=== PATIENT | male | born 1940 | race Caucasian/White ===

== ENCOUNTER 2016-10-31 23:46 | Inpatient (IN) ==
--- NOTE | 2016-11-01 01:12 | Emergency Department Note ---
Elvia Bermudez Hilary, am scribing for, and in the presence of, Shaheed Rasmussen MD 01:09. Grady Bermudez Charles R, MD, personally performed the services described in this documentation, ascribed by Sol Gan in my presence, and it is both accurate and complete . Arrival - Arrival Chief Complaint: Dizziness ED Nursing Triage Note: C/O Near syncopal episodes/dizziness/bradycardia. Onset on and off for the past couple of weeks. Pt reports that he has seen Dr. Graff for these symptoms and pt had heart monitor placed recently; states he hasn't received the results of the test. Pt reports that yesterday he had dizziness and near syncopal episodes more often. Pt is in bigeminy at time of triage. Mode of Arrival: Stretcher Limitations: No Limitations Source: Patient, RN Notes Reviewed Time Seen by Provider: 11/01/16 00:51 - History of Present Illness HPI Narrative: Pt is a 76 y/o white male brought to the ED via EMS for c/o near syncopal episodes, dizziness, and bradycardia which has been intermittent for several weeks. Pt reports that he was sent from [facility] to be monitored and checked. Pt reports that yesterday he was dizzy and almost passed out multiple times and per pt his HR was 32. No other complaints or problems stated in the ED. Onset (ago): week(s) Consistency: intermittent Severity: moderate Severity scale (1-10): 3 Allergies/Adverse Reactions: Allergies Allergy/AdvReac Type Severity Reaction Status Date / Time levofloxacin [From Levaquin] AdvReac Mild ITCHING Verified 02/02/15 17:35 Home Medications: Home Medications Medication Instructions Recorded Confirmed Type Aspirin 325 mg PO DAILY 11/01/16 11/01/16 History Atorvastatin [Lipitor] 10 mg PO BEDTIME 11/01/16 11/01/16 History Glucosamine 1,500 mg PO DAILY 11/01/16 11/01/16 History Hydrocodone/Acetaminophen 1 each PO Q6HR PRN 11/01/16 11/01/16 History [Hydrocodon-Acetaminophn 10-325] LORazepam [Lorazepam] 1 - 2 mg PO BEDTIME 11/01/16 11/01/16 History Lisinopril 10 mg PO DAILY 11/01/16 11/01/16 History Metoprolol Tartrate 12.5 mg PO BID 11/01/16 11/01/16 History Tamsulosin [Flomax] 0.4 mg PO BEDTIME 11/01/16 11/01/16 History Review of System - Review of System 12 point system: reviewed and no additional remarkable complaints except as stated - Review of System Constitutional: Present: other (dizziness). Absent: fever Cardiovascular: Present: other (low heart rate). Absent: syncope (near syncope multiple times) Neurological: Present: other (dizziness) Medical,Surgical,& Family Hx - Medical History Cardio: History of: Valvular Heart Disease (Hx: Heart valve replacement) No history of: Cardiac Dysrhythmia, CAD, Hypertension Psychological: History of: Anxiety Disorders Neurology: History of: Seizures HEENT: History of: HEENT Problems ([place]) Respiratory: History of: Respiratory Problems (SOB ON EXERTION) Renal: History of: Renal Problems (FREQUENCY) Genitourinary: History of: Prostate Problems (Enlarged prostate) Gastrointestinal: History of: GERD, Hemorrhoids, Polyps, GI Problems (Dysphagia) Musculoskeletal: History of: Back/Neck Problems, Herniated Disk, Musculoskeletal Problems (arthritis) No history of: Amputation Other: History of: MRSA (SPINE) - Surgical History Cardiac Surgeries: Sugical HX of: Cardiac Catheterization, Cardiac Surgery ( Heart valve replacement) Thoracic Surgeries: Patient denies;: Organ Transplant, Lobectomy Neurologic Surgeries: Patient denies: Neurologic Surgery HEENT Surgeries: Surgical HX of: Eye Surgery (RIGHT EYE CATARACT SURG.) Patient denies: Thyroid Surgery, Tonsilectomy & Adenoidectomy Abdominal Surgeries: Surgical HX of: Colonoscopy, EGD Patient denies: Abdominal Surgery Reproductive Surgeries: Patient denies;: Genitourinary Surgery, Prostate Surgery Orthopedic Surgeries: Surgical HX of;: Orthopedic Surgery, Spinal Surgery ( INJECTION L5/S1 LUMBAR FUSION ROTATOR CUFF) - Family History Family History: Reports;: Family Cancer (MOTHER-PANCREATIC FATHER-LUNG BROTHER- LUNG), Family Diabetes (BROTHER), Family Heart Disease (SISTER,), Family Hypertension (Brother), Family Stroke (FATHER) Denies;: Family Anesthesia Reaction, Family Psychiatric Problems - Social History Smoking Status: Never smoker Frequency of Alcohol Use: None Type of Drug Use: None Exam Vital Signs: Vital Signs Temperature 98.4 F 10/31/16 23:46 Pulse Rate 74 06/15/17 23:46 Respiratory Rate 18 10/31/16 23:46 Blood Pressure 170/103 10/31/16 23:46 O2 Sat by Pulse Oximetry 98 10/31/16 23:46 - General General appearance: alert, in no apparent distress - Head Head exam: Present: atraumatic, normocephalic - Eye Eye exam: Present: normal appearance, PERRL, EOMI - ENT ENT exam: Present: mucous membranes moist, TM's normal bilaterally. Absent: mucous membranes dry - Neck Neck exam: Present: full ROM, trachea midline. Absent: tenderness - Chest Chest inspection: Present: symmetric chest wall rise. Absent: tenderness - Respiratory Respiratory exam: Present: rhonchi (in all lung amanda) - Cardiovascular Cardiovascular exam: Present: bradycardia, irregular rhythm, normal heart sounds , murmur (5/6 systolic ejection murmur) - Abdominal Exam Abdominal exam: Present: soft, normal bowel sounds. Absent: distention, tenderness - Extremities Exam Extremities exam: Present: full ROM. Absent: tenderness - Back Exam Back exam: Present: full ROM. Absent: tenderness - Neurological Exam Neurological exam: Present: alert, oriented X3, CN II-XII intact. Absent: motor sensory deficit - Psychiatric Psychiatric exam: Present: normal affect, normal mood - Skin Skin exam: Present: warm, dry, intact, normal color. Absent: rash Course - Consultations Consultation #1: Dr. Romero will admit patient Time: 01:10 Results - Labs Lab Results: I have reviewed the patients labs Labs: All results reviewed from previous facility Disposition Clinical Impression: Abnormal finding on EKG, Bradycardia, Bigeminy, Sick sinus syndrome Case discussed with: patient, patient's family Disposition: Still a Patient Condition: Stable Time of Disposition: 01:11
[2016-11-01] MEDS ORDERED: POTASSIUM CHLORIDE 20 MEQ TABLET PO PRN (02:43)
[2016-11-01] MEDS ORDERED: MAGNESIUM SULF RIDER 2 GM in PREMIX 1 EACH IV PRN (02:43)
[2016-11-01] MEDS ORDERED: MORPHINE 2 MG/1 ML SYRINGE IV PRN (02:43)
[2016-11-01] MEDS ORDERED: MAGNESIUM SULF RIDER 4 GM in PREMIX 1 EACH IV PRN (02:43)
[2016-11-01] MEDS ORDERED: ONDANSETRON 4 MG/2 ML VIAL IV PRN (02:43)
[2016-11-01] MEDS ORDERED: PNEUMOCOCCAL VACCINE (13 VALENT) 0.5 ML SYRINGE IM ONE (03:17)
[2016-11-01 04:05] LABS: Basophils % 0.5 % (0.0-0.8); Eosinophils # 0.3 10*3/uL (0.0-0.87); Eosinophils % 3.9 % (0.00-10.9); Hematocrit 32.3 VOL% (42.0-52.0); Hemoglobin 10.3 GM/DL (14.0-18.0); Immature Granulocytes % 0.4 %; Immature Granulocytes Absolute 0.03 #; Lymphocytes # 2.2 10*3/uL (1.4-4.0); Lymphocytes % 29.8 % (21.2-54.2); Mean Corpuscular HGB Conc 31.9 GM/DL (32-36); Mean Corpuscular Hemoglobin 29 PG (27-34); Mean Corpuscular Volume 90.5 FL (87-102); Mean Platelet Volume 12.6 FL (9.6-12.0); Monocytes # 0.6 10*3/uL (0.11-0.8); Monocytes % 8.4 % (1.7-12.7); Neutrophils # 4.3 10*3/uL (1.4-7.4); Platelet Count 171 T/CUMM (130-400); Red Blood Count 3.57 MC/CUMM (3.8-5.5); Red Cell Distribution Width 14.8 % (9.3-17.3); White Blood Count 7.5 T/CUMM (4-12)
[2016-11-01 04:37] LABS: Troponin I Only < 0.015 NG/ML (0.00-0.045)
[2016-11-01 04:38] LABS: Albumin 3.5 G/DL (3.4-5.0); Bilirubin,Total 0.7 MG/DL (0.2-1.0); Calcium 8.4 MG/DL (8.5-10.1); Magnesium 2.3 MG/DL (1.8-2.4); Potassium 4.2 MMOL/L (3.5-5.1); Risk Ratio 2.55; Thyroid Stimulating Hormone 4.46 uIU/ml (0.358-3.74); Total Protein 6.4 G/DL (6.4-8.3); VLDL CHOLESTEROL 12.4 MG/DL
--- NOTE | 2016-11-01 07:10 | EKG Report ---
Stationary ECG Study [facility] Test Date: 10/31/2016 11:56:50 PM Pat Name: ISIDRO MCDONOUGH Department: Room: 275 Gender: M Primary Operator: JUAN : 1940 Requested by: Shaheed An Order Number: [id number] Reading MD: MALIK MOFFETT Intervals [place] Rate: 70 P: 66 [place]: 207 QRS: 86 QRSD: 109 T: -21 QT: 371 QTc: 392 Interpretive Statements SINUS RHYTHM WITH FREQUENT VENTRICULAR PREMATURE COMPLEXES IN A BIGEMINAL PATTERN Electronically Signed On 11-02-16 15:04:35 CDT by MALIK MOFFETT [id number]
--- NOTE | 2016-11-01 07:15 | XRay Report ---
Portable chest Date: 11/01/2016 Clinical history: Shortness of breath Comparison: 02/20/2015 Technique: Portable AP sitting chest Findings: The heart is normal in size. Status post median sternotomy with chronic scarring. The lungs are minimally over expanded with minimal atelectasis at the right lung base. Possible pleural thickening laterally in the right lower lung zone. Postoperative findings in the left shoulder with degenerative changes. Impression: Status post median sternotomy with chronic scarring. The lungs are over expanded with atelectasis at the right lung base. Possible pleural thickening laterally in the right hemithorax. Follow-up PA and lateral chest x-ray is recommended. PROCEDURE INTERPRETED AT [facility] DEPARTMENT OF RADIOLOGY Final Report Signed by: Dr. Catrachita Arenas
[2016-11-01] MEDS ORDERED: ENOXAPARIN 40 MG/0.4 ML SYRINGE SUBCUT SCH (09:00)
[2016-11-01] MEDS ORDERED: ASPIRIN 325 MG TABLET PO SCH (09:00)
[2016-11-01] MEDS: GLUCOSAMINE 500 MG TABLET PO SCH (09:21)
[2016-11-01] MEDS: PANTOPRAZOLE 40 MG TABLET PO SCH (09:22)
[2016-11-01] MEDS: LISINOPRIL 10 MG TABLET PO SCH (09:22)
--- NOTE | 2016-11-01 10:36 | EKG Report ---
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
[2016-11-01 11:28] LABS: Troponin I Only < 0.015 NG/ML (0.00-0.045)
--- NOTE | 2016-11-01 11:59 | Cardiology History & Physical ---
Dena Bermudez April RN, am scribing for, and in the presence of, Gallo Doshi MD 11:56. Assessment and Plan - Time spent with patient Time spent with patient: Greater than 30 minutes (Due to assessment, planning, documentation, medication review) (1) Bigeminy Status: Acute Assessment and plan: 1. 76-year-old overweight WM with hypertension, dyslipidemia, status post aVR ( for severe left ear), and two-vessel CABG (FISCHER and diagonal) January 2015, with long history of frequent PVCs, which now appears to be symptomatic with associated fatigue, shortness of breath, and dizziness (one episode of presyncope) 2. Recent Holter monitor showed low heart rate of 45; he reported a heart rate in the upper 30s at outside ER, but likely due to his ventricular bigeminy that he has frequently. 3. Chads 2 vascular score is 2, will start Eliquis 5 mg twice daily 4. Normal LV function by recent echocardiogram in clinic (Dr. Graff) 5. Discontinue his metoprolol (recently decreased to 12.5 g twice daily), and try amiodarone 0.5 mg/min with 200 g p.o. twice daily to try to suppress his symptomatic PVCs. 6. Brief episodes of atrial fibrillation noted on recent Holter monitor, as well as brief SVT of less than 10 beats 7. Highly suspect NOE given his daytime somnolence, episodes of witnessed apnea by his and dysrhythmia. Consult sleep medicine. Current Visit: Yes (2) CAD (coronary artery disease) Status: Chronic Current Visit: Yes Qualifiers: Coronary Disease-Associated Artery/Lesion type: bypass graft [place] vs. transplanted heart: hughes heart Associated angina: without angina Qualified Code(s): I25.810 - Atherosclerosis of coronary artery bypass graft(s) without angina pectoris (3) Status post aortic valve replacement Status: Chronic Current Visit: Yes (4) Hypertension Status: Chronic Current Visit: Yes (5) Dyslipidemia Status: Chronic Current Visit: Yes (6) Bradycardia Status: Acute Current Visit: Yes History of Present Illness Chief complaint: Dizziness, low heart rates History of present illness: [employer] Supervisor: Dr. Graff Mr. Yee is a 76 year old male who is routinely followed by Dr. Graff with a history of CAD, aortic valve replacement, hypertension, dyslipidemia, and arthritis. He had aortic valve replacement with a 21 mm pericardial prosthesis February 15, [address] Mares. At this time he also had an internal mammary graft placed to the anterior descending coronary artery and a saphenous vein graft to diagonal coronary artery. Surgical history includes cervical spine, lumbosacral spine, bilateral rotator cuff, and left foot. Family history is positive for parents and brother with cancer, brother with hypertension diabetes , and sister with heart valve replacement. He does not currently smoke, reports he quit smoking about 30 years ago. He states he is very active. He saw Dr. Graff 10/17/2016 for a follow-up. Echo done showed ejection fraction of 55% with prosthetic aortic valve noted in normal function and position. He complained of palpitations and had a 48 Hour Holter placed. The heart rate ranged from 45-128 bpm with runs of SVT, the longest being 10 beats. He was also noted to have some brief runs of atrial fibrillation as well. He says he had none of his symptoms while wearing the Holter. He reports he feels as though his heart has been skipping beats for about 3 months. 4-5 days ago his heart rate came to feel slower and yesterday when he checked it with his blood pressure machine at home, it showed heart rates in the 30s. He presented to the emergency department in [place] for further evaluation. The emergency department at [facility] did document at one place that his heart rate was 37, but there were no rhythm strips and over and negative EKGs support this. The EKGs done there showed sinus bradycardia with heart rate of 55 and sinus rhythm with PVCs in a bigeminal pattern with heart rate of 75 and 71. EKG done in our facility showed sinus rhythm with frequent PVCs in a bigeminal pattern, heart rate 70. Reviewing the ekg monitor tech strips throughout the night, I do not see any record of heart rates in the 30s. Most of the night his heart rates were in the 60s and he was having frequent PVCs. He reports when he feels like his heart rate is low, he feels dizzy and weak as if he might pass out. He has had no loss of consciousness. He reports when laying down his heart feels like it beats very hard and he can feel it in his ears. He denies any shortness of breath except when laying down, but he states he only sleeps on one pillow. His does report that he snores and seems to stop breathing erratically while sleeping. He states he has never been tested for sleep apnea. He denies any chest pain with these symptoms or otherwise. He also tells me he has been having a dry cough that coincided with starting lisinopril. He reports during the night his heart began to feel like it was beating normally. Currently ekg monitor tech shows sinus rhythm heart rates in the 90s. He is sitting up eating breakfast and denies any chest pain or shortness of breath at this time. Troponin has been negative 1 check. His TSH is elevated at 4.470 with a free T4 of 0.96. BNP is 2220. All other lab was unremarkable. Chest x-ray showing atelectasis at the right lung base with possible pleural thickening laterally in the right hemithorax. His blood pressure elevated on admission at 170/103, little better this morning at 140/66. Home Medications Medication Instructions Recorded Confirmed Type Aspirin 325 mg PO DAILY 11/01/16 11/01/16 History Atorvastatin [Lipitor] 10 mg PO BEDTIME 11/01/16 11/01/16 History Ginkgo Biloba 120 mg PO DAILY 11/01/16 11/01/16 History Glucosamine 1,500 mg PO DAILY 11/01/16 11/01/16 History Hydrocodone/Acetaminophen 1 each PO Q6HR PRN 11/01/16 11/01/16 History [Hydrocodon-Acetaminophn 10-325] LORazepam [Lorazepam] 1 - 2 mg PO BEDTIME 11/01/16 11/01/16 History Lisinopril 10 mg PO DAILY 11/01/16 11/01/16 History Metoprolol Tartrate 12.5 mg PO BID 11/01/16 11/01/16 History Tamsulosin [Flomax] 0.4 mg PO BEDTIME 11/01/16 11/01/16 History Ubidecarenone [Co Q-10] 1 tablet PO DAILY 11/01/16 11/01/16 History Allergies Allergy/AdvReac Type Severity Reaction Status Date / Time levofloxacin [From Levaquin] AdvReac Mild ITCHING Verified 02/02/15 17:35 - Constitutional Constitutional: Present: as per HPI - EENT Eyes: Present: blurry vision. Absent: requires corrective lense Ears: Present: decreased hearing, tinnitus Nose, mouth and throat: Present: neck pain. Absent: epistaxis, headache(s), hoarseness, sore throat - Cardiovascular Cardiovascular: Present: lightheadedness, orthopnea, palpitations. Absent: chest pain at rest, chest pain with activity, diaphoresis, dyspnea, dyspnea on exertion, edema, radiating jaw, neck or arm pain - Respiratory Respiratory: Present: cough. Absent: dyspnea, hemoptysis, dyspnea on exertion, wheezing - Gastrointestinal Gastrointestinal: Absent: abdominal pain, constipation, diarrhea, hematemesis, hematochezia, melena, nausea, vomiting - Genitourinary Genitourinary: Absent: dysuria, nocturia - Musculoskeletal Musculoskeletal: Present: back pain, limited range of motion, muscle weakness - Neurological Neurological: Present: dizziness, other (Near-syncope). Absent: abnormal gait, abnormal speech, confusion, frequent falls, headache(s), syncope - Psychiatric Psychiatric: Absent: confusion, depression - Endocrine Endocrine: Present: fatigue - Hematologic/Lymphatic Hematologic/Lymphatic: Present: easy bruising. Absent: easy bleeding Medical,Surgical,& Family Hx - Medical History Cardio: History of: CAD, Hypertension, Valvular Heart Disease (Hx: Heart valve replacement) Psychological: History of: Anxiety Disorders HEENT: History of: HEENT Problems ([place]) Renal: History of: Renal Problems (F[place]) Genitourinary: History of: Prostate Problems (Enlarged prostate) Gastrointestinal: History of: GERD, Hemorrhoids, Polyps, GI Problems (Dysphagia) Musculoskeletal: History of: Back/Neck Problems, Herniated Disk, Musculoskeletal Problems (arthritis) Other: History of: MRSA (SPINE) - Surgical History Cardiac Surgeries: Sugical HX of: Cardiac Catheterization, Cardiac Surgery ( Heart valve replacement and bypass) HEENT Surgeries: Surgical HX of: Eye Surgery (RIGHT EYE CATARACT SURG.) Abdominal Surgeries: Surgical HX of: Colonoscopy, EGD Reproductive Surgeries: Patient denies;: Prostate Surgery Orthopedic Surgeries: Surgical HX of;: Orthopedic Surgery, Spinal Surgery ( INJECTION L5/S1 LUMBAR FUSION ROTATOR CUFF) - Family History Family History: Reports;: Family Cancer (MOTHER-PANCREATIC FATHER-LUNG BROTHER- LUNG), Family Diabetes (BROTHER), Family Heart Disease (SISTER,), Family Hypertension (Brother), Family Stroke (FATHER) - Social History Smoking Status: Former smoker (Reports he quit smoking about 30 years ago) Have you smoked in the last 12 months: No Frequency of Alcohol Use: None Type of Drug Use: None Marital Status: Lives With:: Spouse Functional capacity: independent ambulation Cardiology Physical Exam - Constitutional Vitals: Vital Signs Temp Pulse Resp BP Pulse Ox 98.7 F 65 16 140/66 98 11/01/16 07:36 11/01/16 07:36 11/01/16 07:36 11/01/16 07:36 11/01/16 07:36 Intake and Output 10/31/16 11/01/16 11/01/16 22:59 06:59 14:59 Intake Total 0 / 0 Balance 0 / 0 Intake: Oral 0 / 0 Other: Voiding Method Toilet # Voids 1 Weight 210 lb General appearance: no acute distress, over weight - Head Head exam: Absent: abrasion, contusion, hematoma - Eye Eye exam: Absent: periorbital swelling, laceration to eyelids Pupils: Absent: dilated, fixed - Respiratory Respiratory exam: Present: clear to auscultation bilaterally. Absent: chest wall tenderness, decreased breath sounds - Cardiovascular Cardiovascular exam: Present: bradycardia, regular rate and rhythm. Absent: diastolic murmur, rubs, systolic murmur - GI/Abdominal GI/Abdominal exam: Present: normal bowel sounds, soft. Absent: distended, tenderness - Extremities Exam Extremities exam: Absent: calf tenderness, edema - Neurological Exam Neurological exam: Present: alert, oriented X3 - Psychiatric Psychiatric exam: Present: normal affect, normal mood - Skin Skin exam: Present: warm, dry Result/EKG - Labs CBC & BMP: 11/01/16 03:12 11/01/16 03:12 Lab Results: I have reviewed the past 24 hour labs Labs: Laboratory Results - last 24 hr 11/01/16 11/01/16 11/01/16 03:12 03:12 03:12 WBC 7.5 RBC 3.57 L Hgb 10.3 L Hct 32.3 L MCV 90.5 MCH 29 MCHC 31.9 L RDW 14.8 Plt Count 171 MPV 12.6 H Neut % (Auto) 57.0 Lymph % (Auto) 29.8 [place] % (Auto) 8.4 Eos % (Auto) 3.9 Baso % (Auto) 0.5 Neut # (Auto) 4.3 Lymph # (Auto) 2.2 [place] # (Auto) 0.6 Eos # (Auto) 0.3 Baso # (Auto) 0.0 Immature Gran % 0.4 Nucleated RBC % 0.0 Immature Gran # 0.03 Nucleated RBCs # 0.00 Sodium 143 Potassium 4.2 Chloride 109 H Carbon Dioxide 25 Anion Gap 13.2 BUN 29 H Creatinine 1.50 H GFR Calculation 55 BUN/Creatinine Ratio 19.00 Glucose 100 Calculated Osmolality 290.0 Calcium 8.4 L Magnesium 2.3 Total Bilirubin 0.70 AST 13 ALT 20 Alkaline Phosphatase 64 Total Creatine Kinase 112 CK-MB (CK-2) 2.1 Troponin I < 0.015 B-Natriuretic Peptide Total Protein 6.4 Albumin 3.5 Globulin 2.9 Albumin/Globulin Ratio 1.2 Triglycerides 62 Cholesterol 130 LDL Cholesterol 74.0 VLDL Cholesterol 12.4 HDL Cholesterol 51 Heart Disease Risk Ratio 2.55 Free T4 TSH 3rd Generation 4.460 H 11/01/16 11/01/16 03:12 03:12 WBC RBC Hgb Hct MCV MCH MCHC RDW Plt Count MPV Neut % (Auto) Lymph % (Auto) [place] % (Auto) Eos % (Auto) Baso % (Auto) Neut # (Auto) Lymph # (Auto) [place] # (Auto) Eos # (Auto) Baso # (Auto) Immature Gran % Nucleated RBC % Immature Gran # Nucleated RBCs # Sodium Potassium Chloride Carbon Dioxide Anion Gap BUN Creatinine GFR Calculation BUN/Creatinine Ratio Glucose Calculated Osmolality Calcium Magnesium Total Bilirubin AST ALT Alkaline Phosphatase Total Creatine Kinase CK-MB (CK-2) Troponin I B-Natriuretic Peptide 220 H Total Protein Albumin Globulin Albumin/Globulin Ratio Triglycerides Cholesterol LDL Cholesterol VLDL Cholesterol HDL Cholesterol Heart Disease Risk Ratio Free T4 0.96 TSH 3rd Generation - Diagnostic Findings Procedure: Chest x-ray: report reviewed by me - EKG EKG results: interpreted by me EKG shows: sinus rhythm (With PVCs) Glenda Bermudez Randall Scott, MD, personally performed the services described in this documentation, ascribed by Bernadine Fernandes RN in my presence, and it is both accurate and complete [id number] .
[2016-11-01] MEDS ORDERED: AMIODARONE INJ 450 MG in DEXTROSE 5% 241 ML IV SCH (12:00)
[2016-11-01] MEDS: AMIODARONE 200 MG TABLET PO SCH ×2 (14:04→21:30)
--- NOTE | 2016-11-01 18:39 | EKG Report ---
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
[2016-11-01 20:05] LABS: Troponin I Only < 0.015 NG/ML (0.00-0.045)
[2016-11-01] MEDS ORDERED: ATORVASTATIN 10 MG TABLET PO SCH (21:00)
[2016-11-01] MEDS ORDERED: TAMSULOSIN 0.4 MG CAPSULE PO SCH (21:00)
[2016-11-02 05:01] LABS: Basophils % 0.5 % (0.0-0.8); Eosinophils # 0.3 10*3/uL (0.0-0.87); Eosinophils % 3.6 % (0.00-10.9); Hematocrit 31.6 VOL% (42.0-52.0); Hemoglobin 10.2 GM/DL (14.0-18.0); Immature Granulocytes % 0.1 %; Immature Granulocytes Absolute 0.01 #; Lymphocytes # 2.7 10*3/uL (1.4-4.0); Lymphocytes % 31.2 % (21.2-54.2); Mean Corpuscular HGB Conc 32.3 GM/DL (32-36); Mean Corpuscular Hemoglobin 29 PG (27-34); Mean Corpuscular Volume 89.5 FL (87-102); Mean Platelet Volume 12.3 FL (9.6-12.0); Monocytes # 0.8 10*3/uL (0.11-0.8); Monocytes % 8.9 % (1.7-12.7); Neutrophils # 4.8 10*3/uL (1.4-7.4); Neutrophils % 55.7 % (38.7-73.9); Platelet Count 179 T/CUMM (130-400); Red Blood Count 3.53 MC/CUMM (3.8-5.5); Red Cell Distribution Width 14.7 % (9.3-17.3); White Blood Count 8.6 T/CUMM (4-12)
[2016-11-02 05:28] LABS: Calcium 8.4 MG/DL (8.5-10.1); Magnesium 2.2 MG/DL (1.8-2.4); Potassium 4.3 MMOL/L (3.5-5.1)
[2016-11-02] MEDS: AMIODARONE 200 MG TABLET PO SCH (08:17)
[2016-11-02] MEDS: LISINOPRIL 10 MG TABLET PO SCH (08:17)
[2016-11-02] MEDS: GLUCOSAMINE 500 MG TABLET PO SCH (08:17)
[2016-11-02] MEDS: PANTOPRAZOLE 40 MG TABLET PO SCH (08:17)
[2016-11-02] MEDS ORDERED: ASPIRIN CHEW 81 MG TABLET PO SCH (09:00)
--- NOTE | 2016-11-02 09:09 | EKG Report ---
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
[2016-11-02 11:57] VITALS: BP 113/62
--- NOTE | 2016-11-02 12:16 | Discharge Summary ---
Hospital Course - Hospital Course Hospital Course: Mr. Yee presented with symptomatic frequent PVCs and bigeminy episodes associated with palpitations and dizziness at times. His heart rate was measured in the upper 30s that time but this is clearly related to the bigeminy. I put him on IV amiodarone overnight he started p.o. 200 mg twice daily. Today's feeling significant better examining on the floor. He did have one episode of palpitations last night. He apparently had some brief A. fib on Holter in the past. We discussed risks and benefits of anticoagulation, and he wishes to withhold from anticoagulation discussed with Dr. Graff when he sees him in clinic in 2 weeks. We also discussed the possibility of having NOE, but he wishes to hold off on follow-up until he discusses this with Dr. Graff as well. At this time I believe he said maximal hospital benefit discharged home. Diagnosis - Discharge Diagnosis (1) Bigeminy Status: Acute (2) CAD (coronary artery disease) Status: Chronic (3) Status post aortic valve replacement Status: Chronic (4) Hypertension Status: Chronic (5) Dyslipidemia Status: Chronic (6) Bradycardia Status: Acute Specialty Discharge - Follow Up or Referrals Follow up with: Refugio Graff MD [Physician] - 2 Weeks (He reports that he already has an appointment with Dr. Graff November 18. Please confirm this, and order EKG with FLP CMP CBC magnesium TSH upon return.) Discharge Plan - Discharge Medications No Action Tamsulosin [Flomax] 0.4 mg PO BEDTIME Glucosamine 1,500 mg PO DAILY Hydrocodone/Acetaminophen [Hydrocodon-Acetaminophn 10-325] 1 each PO Q6HR PRN PRN Reason: Pain Metoprolol Tartrate 12.5 mg PO BID Aspirin 325 mg PO DAILY LORazepam [Lorazepam] 1 - 2 mg PO BEDTIME Atorvastatin [Lipitor] 10 mg PO BEDTIME Lisinopril 10 mg PO DAILY Ubidecarenone [Co Q-10] 1 tablet PO DAILY Ginkgo Biloba 120 mg PO DAILY - Follow Up or Referral - Forms/Instructions Exam - Constitutional Vitals: Period Temp Pulse Resp BP Sys/Mariano Pulse Ox Last 24 Hr 97.9 F-98.9 F 41-74 16-20 88-169/45-73 95-98 General appearance: no acute distress, over weight - Head Head exam: Present: normal inspection, normocephalic, atraumatic - Neck Neck exam: Present: normal inspection - Respiratory Respiratory exam: Absent: rales, stridor, wheezes - Cardiovascular Cardiovascular exam: Present: regular rate and rhythm, systolic murmur. Absent : diastolic murmur, rubs - GI/Abdominal GI/Abdominal exam: Present: soft. Absent: tenderness - Extremities Exam Extremities exam: Absent: edema Discharge Results Procedures and tests throughout hospitalization: Pending Orders 11/03/16 04:00 Basic Metabolic Panel w/Mg IN AM Comp Blood Count Auto Diff IN AM 11/04/16 04:00 Basic Metabolic Panel w/Mg IN AM Comp Blood Count Auto Diff IN AM Labs on day of discharge: Labs from last 24 hours 11/02/16 11/02/16 11/01/16 03:59 03:59 19:26 WBC 8.6 RBC 3.53 L Hgb 10.2 L Hct 31.6 L MCV 89.5 MCH 29 MCHC 32.3 RDW 14.7 Plt Count 179 MPV 12.3 H Neut % (Auto) 55.7 Lymph % (Auto) 31.2 [place] % (Auto) 8.9 Eos % (Auto) 3.6 Baso % (Auto) 0.5 Neut # (Auto) 4.8 Lymph # (Auto) 2.7 [place] # (Auto) 0.8 Eos # (Auto) 0.3 Baso # (Auto) 0.0 Immature Gran % 0.1 Nucleated RBC % 0.0 Immature Gran # 0.01 Nucleated RBCs # 0.00 Sodium 143 Potassium 4.3 Chloride 109 H Carbon Dioxide 26 Anion Gap 12.3 BUN 25 H Creatinine 1.30 GFR Calculation 65 BUN/Creatinine Ratio 19.00 Glucose 99 Calculated Osmolality 288.0 Calcium 8.4 L Magnesium 2.2 Total Creatine Kinase 95 CK-MB (CK-2) 1.6 Troponin I < 0.015 DS: Provider Date of admission: 11/01/16 01:13 Primary care physician: . No PCP Attending physician on admission: Bubba Martínez Consults: 11/01/16 11:46 Consult to Sleep Center [CONS] Routine Reason for Sleep Center: Sleep Center Physician Consult Comment: snores, apneic episodes, somnolence Discharging clinician: Gallo Cardona
== END 2016-11-02 14:01 | disposition home or self-care (01) | DRG 309 ==
LOC: EDUNIT# → EDBD → N.ED 23:46 → N.EDINP 11-01 01:13 → N.TELES 11-01 01:40
PROVIDERS: ADMIT Internal Medicine Cardiovascular Disease; ATTEND Internal Medicine Cardiovascular Disease

== ENCOUNTER 2016-12-25 15:00 | Inpatient (IN) ==
[~2016-12-25 15:00] MED LIST: ACETAMINOPHEN 325 MG TABLET PO PRN; DOCUSATE SODIUM 100 MG CAPSULE PO PRN; MAGNESIUM SULF RIDER 2 GM in PREMIX 1 EACH IV PRN; MAGNESIUM SULF RIDER 4 GM in PREMIX 1 EACH IV PRN; ONDANSETRON 4 MG/2 ML VIAL IV PRN; ZALEPLON 5 MG CAPSULE PO PRN
--- NOTE | 2016-12-25 15:06 | EKG Report ---
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
--- NOTE | 2016-12-25 15:17 | XRay Report ---
XR chest 1V portable Indication: Shortness of breath Comparison: Chest x-ray 11/01/2016 Technique: Portable AP chest was performed. Findings: Heart size is normal. Sternal wires are stable. Pulmonary vasculature appears within normal limits. No significant abnormality of the mediastinal contours demonstrated. Lungs are clear. Bones and soft tissues demonstrate no significant abnormalities. Impression: 1. No evidence of acute pathology. 12/25/2016 3:14 PM PROCEDURE INTERPRETED AT [facility] DEPARTMENT OF RADIOLOGY Final Report Signed by: Dr. Jignesh Javed
--- NOTE | 2016-12-25 15:56 | Cardiology History & Physical ---
Assessment and Plan - Time spent with patient Time spent with patient: Greater than 30 minutes (1) Anemia Status: Acute Assessment and plan: SEE PLAN OF CARE LISTED BELOW. Current Visit: Yes (2) Chronic anticoagulation Status: Chronic Assessment and plan: SEE PLAN OF CARE LISTED BELOW. Current Visit: Yes (3) Paroxysmal a-fib Status: Acute Current Visit: No (4) H/O heart valve replacement with bioprosthetic valve Problem details: Aortic valve Status: Chronic Assessment and plan: SEE PLAN OF CARE LISTED BELOW. Current Visit: No (5) CAD (coronary artery disease) Status: Chronic Assessment and plan: SEE PLAN OF CARE LISTED BELOW. Current Visit: No Qualifiers: Coronary Disease-Associated Artery/Lesion type: bypass graft [place] vs. transplanted heart: [place] heart Associated angina: without angina Qualified Code(s): I25.810 - Atherosclerosis of coronary artery bypass graft(s) without angina pectoris (6) Dyslipidemia Status: Chronic Assessment and plan: SEE PLAN OF CARE LISTED BELOW. Current Visit: No (7) Hypertension Status: Chronic Assessment and plan: SEE PLAN OF CARE LISTED BELOW. 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 Yee is a 76 year old male with known history of coronary artery disease, routinely followed by Dr. Refugio Graff. Patient has cardiac risk factors significant for known CAD, hypertension, dyslipidemia, obesity and former smoker (quit smoking in 1990). Patient has a past medical history of paroxysmal atrial fibrillation. He had heart catheterization performed January 2015. He was noted to have severe aortic stenosis as well as severe disease of the mid LAD and second diagonal. Subsequently, he underwent AVR and coronary artery bypass grafting. He had CABG 2 with FISCHER to LAD and SVG to diagonal coronary artery. He had bioprosthetic aortic valve placed as well. His last echocardiogram was performed October and . At that time he had normal systolic function with EF estimated at 55%. Grade 2 diastolic dysfunction. Mild concentric LVH. Mild MR. Mild to moderate TR. Pulmonary artery pressure 38 mmHg. Patient was newly diagnosed with paroxysmal atrial fibrillation per Holter monitor October 2016. Patient was transferred from [facility] in [facility] to [facility] today for further evaluation of anemia. He reports that he began taking Xarelto approximately 3 weeks ago for paroxysmal atrial fibrillation. He began experiencing melena yesterday. He called Dr. Graff's office yesterday and was instructed to discontinue Xarelto. He also complains of shortness of breath over the last 1 month. Reports that he has noticed this ever since beginning amiodarone. Patient presented to ER in [place] to be further evaluated. CBC at [facility] facility was 7 and 22. He was noted to be in sinus bradycardia with heart rate 55. Subsequently, he was transferred to our facility to be further evaluated. He reports from a cardiac stand point he has done quite well. He denies any significant change in his exercise tolerance. He does confirm shortness of breath. His atrial fibrillation appears to have been under well control. He denies heart racing and palpitations. No lower extremity edema, orthopnea and PND. Patient will be admitted under cardiology service and housed the telemetry unit. Patient was seen and examined on the telemetry unit. He is sitting up in chair in no acute distress. He is without points of chest pain, heaviness and tightness. EKG is abnormal. ST deviation with T-wave abnormality noted inferior laterally. Suspect this is secondary to his profound anemia. We will continue to monitor EKGs and cycle cardiac biomarkers. No need to repeat echocardiogram as he does have one performed in October of this year. Had preserved ejection fraction at that time. Patient is without complaints of angina. I will transfuse patient with 2 units of packed red blood cells, check anemia profile and stool for occult blood. Consult gastroenterology to further evaluate. Will further discuss with Dr. Mclean and await his additional recommendations. ASSESSMENT AND PLAN 1. [facility] CBC ordered. I will transfuse patient with 2 units of packed red blood cells. Monitor with daily CBC. Order anemia profile, check stool for occult blood and consult gastroenterology to further evaluate. Will most likely benefit from EGD. 2. HISTORY OF CAD - This appears to be clinically stable at present. Patient is without complaints of angina. I will continue his aspirin, lipid-lowering agent and beta blockade. 3. History of paroxysmal atrial fibrillation -newly diagnosed in October per Holter monitor. Appears to be clinically stable at present. Now in normal sinus rhythm. Will continue amiodarone and monitor per telemetry. Holding Xarelto at this time due to significant anemia. 4. CHRONIC ANTICOAGULATION - Was placed on Xarelto 3 weeks ago for stroke prevention as he has history of PAF. Will hold at this time pending GI evaluation. 5. HYPERLIPIDEMIA - Lipid lowering agent has been reinitiated. Lipid panel in the morning. 6. HYPERTENSION - Blood pressure well controlled. I have reinitiated patient' s home medication regimen. Will monitor blood pressure and adjust medications accordingly this hospitalization. 7. STATUS POST AVR WITH BIOPROSTHETIC VALVE - Continue current plan of care. Home Medications Medication Instructions Recorded Confirmed Type Aspirin 325 mg PO DAILY 11/01/16 12/25/16 History Atorvastatin [Lipitor] 10 mg PO BEDTIME 11/01/16 12/25/16 History Ginkgo Biloba 120 mg PO DAILY 11/01/16 12/25/16 History Glucosamine 1,500 mg PO DAILY 11/01/16 12/25/16 History Hydrocodone/Acetaminophen 1 each PO Q6HR PRN 11/01/16 12/25/16 History [Hydrocodon-Acetaminophn 10-325] LORazepam [Lorazepam] 1 - 2 mg PO BID 11/01/16 12/25/16 History Lisinopril 10 mg PO DAILY 11/01/16 12/25/16 History Tamsulosin [Flomax] 0.4 mg PO BEDTIME 11/01/16 12/25/16 History Ubidecarenone [Co Q-10] 1 tablet PO DAILY 11/01/16 12/25/16 History Metoprolol Tartrate Tab [Lopressor 12.5 mg PO BID 12/25/16 12/25/16 History Tab] Allergies Allergy/AdvReac Type Severity Reaction Status Date / Time levofloxacin [From Levaquin] AdvReac Mild ITCHING Verified 02/02/15 17:35 - Cardiovascular Cardiovascular: Present: as per HPI, dyspnea. Absent: chest pain at rest, chest pain with activity, claudication, diaphoresis, dyspnea on exertion, edema , radiating jaw, neck or arm pain, lightheadedness, orthopnea, palpitations, PND - Respiratory Respiratory: Present: as per HPI, dyspnea. Absent: wheezing - Gastrointestinal Gastrointestinal: Present: as per HPI, abdominal pain, melena. Absent: hematemesis, hematochezia, loose stools, nausea, vomiting Medical,Surgical,& Family Hx - Medical History Cardio: History of: Cardiac Dysrhythmia (Paroxysmal A. fib), CAD, Hypertension, Valvular Heart Disease (Hx: Heart valve replacement) Psychological: History of: Anxiety Disorders Endocrine: History of: Dyslipidemia Genitourinary: History of: Prostate Problems (Enlarged prostate) Gastrointestinal: History of: GERD, Hemorrhoids, Polyps, GI Problems (Dysphagia) Musculoskeletal: History of: Back/Neck Problems, Herniated Disk, Musculoskeletal Problems (arthritis) Other: History of: MRSA (SPINE) - Surgical History Cardiac Surgeries: Sugical HX of: Cardiac Catheterization, Cardiac Surgery ( Heart valve replacement and bypass) HEENT Surgeries: Surgical HX of: Eye Surgery (RIGHT EYE CATARACT SURG.) Abdominal Surgeries: Surgical HX of: Colonoscopy, EGD Orthopedic Surgeries: Surgical HX of;: Orthopedic Surgery, Spinal Surgery ( INJECTION L5/S1 LUMBAR FUSION ROTATOR CUFF) - Family History Family History: Reports;: Family Cancer (MOTHER-PANCREATIC FATHER-LUNG BROTHER- LUNG), Family Diabetes (BROTHER), Family Heart Disease (SISTER,), Family Hypertension (Brother), Family Stroke (FATHER) - Social History Smoking Status: Former smoker Frequency of Alcohol Use: None Type of Drug Use: None Marital Status: Lives With:: Spouse Functional capacity: independent ambulation Cardiology Physical Exam - Constitutional Vitals: Vital Signs Pulse Resp BP Pulse Ox 60 18 134/58 100 12/25/16 14:55 12/25/16 14:55 12/25/16 14:55 12/25/16 14:55 Intake and Output 12/25/16 12/25/16 12/25/16 06:59 14:59 22:59 Other: Weight 209 lb Patient Weight 12/26/16 06:59 Weight 209 lb Exam: General: Appears well with no apparent distress. Pleasant and cooperative. Appears comfortable. HEENT: PERRL, normocephalic, atraumatic. Mucous membranes moist. No jaundice noted. Conjunctiva moist and clear, sclerae anicteric Neck: No JVD/HJR, no thyromegaly or lymphadenopathy noted. No carotid bruit appreciated Cardiac: Regular rate and rhythm. Grade 2 systolic murmur Lungs: Clear to auscultation without accessory muscle use to assist the respiratory pattern. Not requiring oxygen. Abdomen: Soft, bowel sounds normoactive. Nontender and nondistended. No abdominal bruit or thrill noted. No masses noted. Extremities: No clubbing, cyanosis noted. No edema noted. Upper extremity pulses 2+. Lower extremity pulses 2+. Capillary refill less than 3 seconds. Skin: No unusual lesions or rashes. No skin breakdown appreciated. Neuro: Awake, alert and oriented 3. Moves all extremities well without hemiparesis or paralysis. No essential tremor is appreciated. Result/EKG - Labs Lab Results: I have reviewed the past 24 hour labs Quality Measures - VTE Contraindication to Pharmacological VTE Prophylaxis: High Risk of Bleeding
[2016-12-25 16:04] LABS: Basophils % 0.5 % (0.0-0.8); Eosinophils # 0.2 10*3/uL (0.0-0.87); Eosinophils % 2.9 % (0.00-10.9); Hematocrit 21.6 VOL% (42.0-52.0); Hemoglobin 6.8 GM/DL (14.0-18.0); Immature Granulocytes % 0.2 %; Lymphocytes # 2.5 10*3/uL (1.4-4.0); Lymphocytes % 38.4 % (21.2-54.2); Mean Corpuscular HGB Conc 31.5 GM/DL (32-36); Mean Corpuscular Hemoglobin 29 PG (27-34); Mean Corpuscular Volume 90.8 FL (87-102); Mean Platelet Volume 12.4 FL (9.6-12.0); Monocytes # 0.6 10*3/uL (0.11-0.8); Monocytes % 8.7 % (1.7-12.7); Neutrophils # 3.2 10*3/uL (1.4-7.4); Neutrophils % 49.3 % (38.7-73.9); Platelet Count 201 T/CUMM (130-400); Red Blood Count 2.38 MC/CUMM (3.8-5.5); Red Cell Distribution Width 14.8 % (9.3-17.3); White Blood Count 6.5 T/CUMM (4-12)
[2016-12-25 16:05] LABS: Immature Granulocytes Absolute 0.01 #
[2016-12-25 16:37] LABS: Calcium 8.2 MG/DL (8.5-10.1); Magnesium 2.4 MG/DL (1.8-2.4); Osmolality,Calculated 289.3 MOS/KG (273-304); Potassium 4.4 MMOL/L (3.5-5.1)
[2016-12-25] MEDS ORDERED: SODIUM CHLORIDE 0.9% 250 ML IV PRN (16:41)
[2016-12-25 16:44] LABS: Troponin I Only < 0.015 NG/ML (0.00-0.045)
[2016-12-25 16:49] LABS: Free T4 (Free Thyroxine) 0.95 NG/DL (0.76-1.46); Thyroid Stimulating Hormone 8.13 uIU/ml (0.358-3.74)
[2016-12-25 16:54] LABS: Folate 15.8 NG/ML (5.4-24.0); Vitamin B12 286 PG/ML (211-911)
[2016-12-25] MEDS: PANTOPRAZOLE 40 MG TABLET PO SCH (16:56)
[2016-12-25 17:20] LABS: Sedimentation Rate-Westergren 28 MM/HR (0-20)
[2016-12-25 19:09] LABS: Ovalocytes Few; Poikilocytosis 1+; Tear Drop Cells Few
[2016-12-25 19:10] LABS: Hypochromasia Slight; Platelet Estimate Normal; Spherocytes Few
[2016-12-25] MEDS: METOPROLOL TARTRATE 25 MG TABLET PO SCH (21:45)
[2016-12-25] MEDS: TAMSULOSIN 0.4 MG CAPSULE PO SCH (21:45)
[2016-12-25] MEDS: LORazepam 1 MG TABLET PO SCH (21:45)
[2016-12-25] MEDS: ATORVASTATIN 10 MG TABLET PO SCH (21:45)
[2016-12-26 00:35] LABS: Troponin I Only < 0.015 NG/ML (0.00-0.045)
[2016-12-26 02:51] LABS: Basophils % 0.5 % (0.0-0.8); Eosinophils # 0.3 10*3/uL (0.0-0.87); Eosinophils % 4.9 % (0.00-10.9); Hematocrit 23.6 VOL% (42.0-52.0); Hematocrit 23.8 VOL% (42.0-52.0); Hemoglobin 7.8 GM/DL (14.0-18.0); Immature Granulocytes % 0.2 %; Immature Granulocytes Absolute 0.01 #; Lymphocytes # 2.5 10*3/uL (1.4-4.0); Lymphocytes % 43.4 % (21.2-54.2); Mean Corpuscular HGB Conc 32.8 GM/DL (32-36); Mean Corpuscular Hemoglobin 29 PG (27-34); Mean Corpuscular Volume 87.5 FL (87-102); Mean Platelet Volume 12.1 FL (9.6-12.0); Monocytes # 0.6 10*3/uL (0.11-0.8); Monocytes % 10.1 % (1.7-12.7); Neutrophils # 2.3 10*3/uL (1.4-7.4); Neutrophils % 40.9 % (38.7-73.9); Platelet Count 160 T/CUMM (130-400); Red Blood Count 2.72 MC/CUMM (3.8-5.5); Red Cell Distribution Width 14.8 % (9.3-17.3); White Blood Count 5.7 T/CUMM (4-12)
[2016-12-26 03:11] LABS: Calcium 7.7 MG/DL (8.5-10.1); Magnesium 2.3 MG/DL (1.8-2.4); Osmolality,Calculated 288.1 MOS/KG (273-304); Potassium 4.5 MMOL/L (3.5-5.1); Risk Ratio 3.16; VLDL CHOLESTEROL 12.2 MG/DL
[2016-12-26 06:26] LABS: Troponin I Only < 0.015 NG/ML (0.00-0.045)
[2016-12-26 07:40] LABS: Hemoglobin A1 (Alkaline) 97.9 % (96.5-98.5)
[2016-12-26 07:41] LABS: Hemoglobin A2 (Alkaline) 2.1 % (1.5-3.5)
--- NOTE | 2016-12-26 07:48 | EKG Report ---
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
[2016-12-26] MEDS ORDERED: GINKGO BILOBA 120 MG PO SCH (09:00)
--- NOTE | 2016-12-26 09:43 | Gastrointestinal Consult Note ---
Addendum entered and electronically signed by Crystal Macedo FNP 12/26/16 09:49: Noted on discharge for last admission in October his H&H was at 03/18. Noted to have blood transfusion in January 2015 following CABG 2. Original Note: <Crystal Macedo - Last Filed: 12/26/16 09:39> Assessment and Plan (1) Rectal bleeding Status: Acute Assessment and plan: 12/26-sudden onset of bright red rectal bleeding without abdominal pain or associated symptoms 2 days with multiple bloody bowel movements. No prior history of GI bleeding in the past. Prior history of colonoscopies done at endoscopic center. H&H on admission 11/06, transfused 2 units, H&H 9 12/08. Ferritin levels noted down at 6.2. Continue to monitor serial H&H and transfuse as necessary. Obtain records from endoscopic center. Plan an addendum follow Dr. Grullon. Current Visit: Yes (2) Epigastric pain Status: Acute Current Visit: Yes History of Present Illness Chief complaint: Rectal bleed History of present illness: Mr. Yee is a 76 year old male who was admitted to the hospital and yesterday with sudden onset of rectal bleeding and findings of anemia. Patient has a prior history of CAD, hypertension, dyslipidemia and atrial fibrillation. Patient states that approximately 3 weeks ago he was started on Xarelto after findings of his atrial fibrillation. He states he is also had multiple medication changes regarding his hypertension trying to regulate his blood pressure. He states he was in his usual state of health until Friday evening when he had the urge to have a bowel movement and upon that time he found a moderate amount of bright red blood mixed in with the stool. He denies any abdominal pain other than the urge to defecate. He denies any other associated symptoms including nausea or vomiting. He states that he had several more bright red bowel movements since onset throughout the day yesterday however yesterday evening his stool began to turn dark and somewhat tarry. Patient states he has noticed as of recent that he has some postprandial epigastric pain following his meals. He denies any increase dyspepsia or dysphagia. He has a prior history of esophageal stricture with dilation in 2014 with only other findings of hiatal hernia on EGD by Dr. Grullon. He states he has had colonoscopies in the past at the endoscopic center and only findings he can recall is having polyps removed and possible history of diverticulosis. Denies a family history of colon cancer. Denies any recent weight loss. Denies constipation are known hemorrhoids. Denies a history of anemia in the past. On admission he was found to have an H&H of 11/06 with an MCV of 90. He has been transfused 2 units of packed red blood cells and H&H is now trended up slightly at 7.8/23.6. Ferritin level noted at 6.2. Last known dose of Xarelto was Friday. Home Medications Medication Instructions Recorded Confirmed Type Aspirin 325 mg PO DAILY 11/01/16 12/25/16 History Atorvastatin [Lipitor] 10 mg PO BEDTIME 11/01/16 12/25/16 History Ginkgo Biloba 120 mg PO DAILY 11/01/16 12/25/16 History Glucosamine 1,500 mg PO DAILY 11/01/16 12/25/16 History Hydrocodone/Acetaminophen 1 each PO Q6HR PRN 11/01/16 12/25/16 History [Hydrocodon-Acetaminophn 10-325] LORazepam [Lorazepam] 1 - 2 mg PO BID 11/01/16 12/25/16 History Lisinopril 10 mg PO DAILY 11/01/16 12/25/16 History Tamsulosin [Flomax] 0.4 mg PO BEDTIME 11/01/16 12/25/16 History Ubidecarenone [Co Q-10] 1 tablet PO DAILY 11/01/16 12/25/16 History Amiodarone Tab [Cordarone Tab] 200 mg PO DAILY 12/25/16 12/25/16 History Metoprolol Tartrate Tab [Lopressor 12.5 mg PO BID 12/25/16 12/25/16 History Tab] Allergies Allergy/AdvReac Type Severity Reaction Status Date / Time levofloxacin [From Levaquin] AdvReac Mild ITCHING Verified 02/02/15 17:35 Medical,Surgical,& Family Hx - Medical History Cardio: History of: Cardiac Dysrhythmia (Paroxysmal A. fib), CAD, Hypertension, Valvular Heart Disease (Hx: Heart valve replacement) Psychological: History of: Anxiety Disorders Neurology: History of: Seizures HEENT: History of: HEENT Problems (KAIBAB) Endocrine: History of: Dyslipidemia Respiratory: History of: Respiratory Problems (SOB ON EXERTION) Renal: History of: Renal Problems (FREQUENCY) Genitourinary: History of: Prostate Problems (Enlarged prostate) Gastrointestinal: History of: GERD, Gastrointestinal Bleed, Hemorrhoids, Polyps , GI Problems (Dysphagia) Musculoskeletal: History of: Back/Neck Problems, Herniated Disk, Musculoskeletal Problems (arthritis) No history of: Amputation Other: History of: MRSA (SPINE) - Surgical History Cardiac Surgeries: Sugical HX of: Cardiac Catheterization, Cardiac Surgery ( Heart valve replacement and bypass) Thoracic Surgeries: Patient denies;: Organ Transplant, Lobectomy Neurologic Surgeries: Patient denies: Neurologic Surgery HEENT Surgeries: Surgical HX of: Eye Surgery (RIGHT EYE CATARACT SURG.) Patient denies: Thyroid Surgery, Tonsilectomy & Adenoidectomy Abdominal Surgeries: Surgical HX of: Colonoscopy, EGD Patient denies: Abdominal Surgery Reproductive Surgeries: Patient denies;: Genitourinary Surgery, Prostate Surgery Orthopedic Surgeries: Surgical HX of;: Orthopedic Surgery, Spinal Surgery ( INJECTION L5/S1 LUMBAR FUSION ROTATOR CUFF) - Family History Family History: Reports;: Family Cancer (MOTHER-PANCREATIC FATHER-LUNG BROTHER- LUNG), Family Diabetes (BROTHER), Family Heart Disease (SISTER,), Family Hypertension (Brother), Family Stroke (FATHER) Denies;: Family Anesthesia Reaction, Family Psychiatric Problems - Social History Smoking Status: Former smoker Frequency of Alcohol Use: None Type of Drug Use: None 12 point system: reviewed and no additional remarkable complaints except as stated - Constitutional Constitutional: Present: as per HPI - EENT Eyes: Present: as per HPI Ears: Present: as per HPI Nose, mouth and throat: Present: as per HPI - Cardiovascular Cardiovascular: Present: as per HPI - Respiratory Respiratory: Present: as per HPI - Gastrointestinal Gastrointestinal: Present: as per HPI, hematochezia, melena - Genitourinary Genitourinary: Present: as per HPI - Musculoskeletal Musculoskeletal: Present: as per HPI - Neurological Neurological: Present: as per HPI - Psychiatric Psychiatric: Present: as per HPI - Endocrine Endocrine: Present: as per HPI - Hematologic/Lymphatic Hematologic/Lymphatic: Present: as per HPI Exam - Constitutional Vitals: Period Temp Pulse Resp BP Sys/Mariano Pulse Ox Last 24 Hr 97.2 F-98.2 F 55-87 16-20 119-157/56-85 95-100 General appearance: normal weight, no acute distress - Head Head exam: Present: normal inspection, normocephalic - Eye Eye exam: Present: other (Lids and conjunctive are unremarkable). Absent: scleral icterus - ENT ENT exam: Present: normal exam, normal oropharynx - Neck Neck exam: Present: normal inspection - Respiratory Respiratory exam: Present: clear to auscultation bilaterally. Absent: rales, rhonchi, wheezes - Cardiovascular Cardiovascular exam: Present: regular rate and rhythm. Absent: diastolic murmur , JVD, systolic murmur - GI/Abdominal GI/Abdominal exam: Present: normal bowel sounds, soft. Absent: ascites, distended, mass, organomegaly, tenderness - Extremities Exam Extremities exam: Present: normal inspection, full ROM - Back Exam Back exam: Present: normal inspection - Neurological Exam Neurological exam: Present: alert, oriented X3 - Psychiatric Psychiatric exam: Present: normal affect, normal mood - Skin Skin exam: Present: normal color, warm, dry Results - Labs CBC & BMP: 12/26/16 02:35 12/26/16 02:35 Lab Results: I have reviewed the past 24 hour labs Quality Measures - VTE Contraindication to Pharmacological VTE Prophylaxis: High Risk of Bleeding <Jaylen Grullon - Last Filed: 12/26/16 17:31> History of Present Illness Chief complaint: 3030 History of present illness: Mr. Yee is a 76 year old male Exam - Constitutional Vitals: Period Temp Pulse Resp BP Sys/Mariano Pulse Ox Last 24 Hr 97.2 F-98.4 F 55-87 16-20 117-157/54-85 95-100 Results - Labs CBC & BMP: 12/26/16 02:35 12/26/16 02:35
[2016-12-26] MEDS ORDERED: SODIUM CHLORIDE 0.9% 250 ML IV PRN (10:05)
--- NOTE | 2016-12-26 10:31 | Cardiology Progress Note ---
Assessment and Plan (1) Anemia Status: Acute Assessment and plan: SEE PLAN OF CARE LISTED BELOW. Current Visit: Yes (2) Chronic anticoagulation Status: Chronic Assessment and plan: SEE PLAN OF CARE LISTED BELOW. Current Visit: Yes (3) Paroxysmal a-fib Status: Acute Current Visit: No (4) H/O heart valve replacement with bioprosthetic valve Problem details: Aortic valve Status: Chronic Assessment and plan: SEE PLAN OF CARE LISTED BELOW. Current Visit: No (5) CAD (coronary artery disease) Status: Chronic Assessment and plan: SEE PLAN OF CARE LISTED BELOW. Current Visit: No Qualifiers: Coronary Disease-Associated Artery/Lesion type: bypass graft [place] vs. transplanted heart: [place] heart Associated angina: without angina Qualified Code(s): I25.810 - Atherosclerosis of coronary artery bypass graft(s) without angina pectoris (6) Dyslipidemia Status: Chronic Assessment and plan: SEE PLAN OF CARE LISTED BELOW. Current Visit: No (7) Hypertension Status: Chronic Assessment and plan: SEE PLAN OF CARE LISTED BELOW. Current Visit: No (8) Dyspnea on exertion Status: Acute Assessment and plan: SEE PLAN OF CARE LISTED BELOW. Current Visit: Yes Cardiology - PN: Subj Interval history: Manager Biostatistics: Dr. Refugio Graff SUMMARY Mr. Yee is a 76 year old male with known history of coronary artery disease , routinely followed by Dr. Refugio Graff. Patient has cardiac risk factors significant for known CAD, hypertension, dyslipidemia, obesity and former smoker (quit smoking in 1990). Patient has a past medical history of paroxysmal atrial fibrillation. He had heart catheterization performed January 2015. He was noted to have severe aortic stenosis as well as severe disease of the mid LAD and second diagonal. Subsequently, he underwent AVR and coronary artery bypass grafting. He had CABG 2 with FISCHER to LAD and SVG to diagonal coronary artery. He had bioprosthetic aortic valve placed as well. His last echocardiogram was performed October and 17. At that time he had normal systolic function with EF estimated at 55%. Grade 2 diastolic dysfunction. Mild concentric LVH. Mild MR. Mild to moderate TR. Pulmonary artery pressure 38 mmHg. Patient was newly diagnosed with paroxysmal atrial fibrillation per Holter monitor October 2016. Patient was transferred to [facility] from [facility] for further evaluation of anemia[facility]. At our facility, H&H was 6 and 21. Patient received 2 units of packed red blood cells last night. Xarelto has been placed on hold. GI was consulted. DECEMBER 26, 2016 Patient was seen and examined on the telemetry unit. He reports that he feels much better. He reports that his breathing has improved after receiving blood yesterday evening. He is without complaints of chest pain, heaviness and tightness. No signs of ACS. Cardiac biomarkers have been negative 3. He is hemodynamically stable. Patient reports that he had recurrent episode of bright red blood per rectum yesterday evening. However, stool sample was not obtained. Occult blood stool samples pending. H&H this morning has slightly improved to 7.8 and 23.6. I will order 2 more units of packed red blood cells. Recheck CBC 1 hour posttransfusion. GI to evaluate patient today. I will further discuss with Dr. Mclean and await his additional recommendations. ASSESSMENT AND PLAN 1. ANEMIA - H&H has slightly increased this morning to 7.8 and 23.6. I will order 2 more units packed red blood cells today. Recheck CBC 1 hour post transition. GI to see patient today. 2. HISTORY OF CAD - This appears to be clinically stable at present. No signs of ACS. Patient is without complaints of angina. I will continue his aspirin, lipid-lowering agent and beta blockade. 3. HISTORY OF PAROXYSMAL ATRIAL FIBRILLATION - Newly diagnosed in October per Holter monitor. Appears to be clinically stable at present. Now in normal sinus rhythm. Will continue amiodarone and monitor per telemetry. Holding Xarelto at this time due to significant anemia. 4. CHRONIC ANTICOAGULATION - Was placed on Xarelto 3 weeks ago for stroke prevention as he has history of PAF. Will hold at this time pending GI evaluation. He did not have his EDGAR resected during the cardiac surgery, long- term anticoagulation for PAF is indicated. If this is too high risk, EDGAR closure may be considered 5. HYPERLIPIDEMIA - Continue lipid-lowering agent. LDL 75. 6. HYPERTENSION - Blood pressure well controlled. Will monitor blood pressure and adjust medications accordingly this hospitalization. 7. STATUS POST AVR WITH BIOPROSTHETIC VALVE - Continue current plan of care. 8. DYSPNEA ON EXERTION - Likely secondary to his profound anemia. We will need to reassess JOSE, when hematocrit stable. Need to rule out pulmonary issues , related to amiodarone. Exam (Progress Note) - Constitutional Vitals: Period Temp Pulse Resp BP Sys/Mariano Pulse Ox Last 24 Hr 97.2 F-98.2 F 55-87 16-20 119-157/56-85 95-100 Exam: General: Appears well with no apparent distress. Pleasant and cooperative. Appears comfortable. HEENT: PERRL, normocephalic, atraumatic. Mucous membranes moist. No jaundice noted. Conjunctiva moist and clear, sclerae anicteric Neck: No JVD/HJR, no thyromegaly or lymphadenopathy noted. No carotid bruit appreciated Cardiac: Regular rate and rhythm. Grade 2 systolic murmur Lungs: Clear to auscultation without accessory muscle use to assist the respiratory pattern. Not requiring oxygen. Abdomen: Soft, bowel sounds normoactive. Nontender and nondistended. No abdominal bruit or thrill noted. No masses noted. Extremities: No clubbing, cyanosis noted. No edema noted. Upper extremity pulses 2+. Lower extremity pulses 2+. Capillary refill less than 3 seconds. Skin: No unusual lesions or rashes. No skin breakdown appreciated. Neuro: Awake, alert and oriented 3. Moves all extremities well without hemiparesis or paralysis. No essential tremor is appreciated. Result/EKG - Labs CBC & BMP: 12/26/16 02:35 12/26/16 02:35 Lab Results: I have reviewed the past 24 hour labs Labs: Laboratory Results - last 24 hr 12/25/16 12/25/16 12/25/16 15:36 15:36 15:36 WBC RBC Hgb Hct MCV MCH MCHC RDW Plt Count MPV Neut % (Auto) Lymph % (Auto) [place] % (Auto) Eos % (Auto) Baso % (Auto) Neut # (Auto) Lymph # (Auto) [place] # (Auto) Eos # (Auto) Baso # (Auto) Immature Gran % Nucleated RBC % Immature Gran # Nucleated RBCs # Anemia Panel Interp Platelet Estimate Immature Plt Fraction Hypochromasia Poikilocytosis Spherocytes Tear Drop Cells Ovalocytes ESR Westergren Absolute Retic Percent Retic Retic Hgb Equivalent Hemoglobin A1 Hemoglobin A2 Hemoglobin C Hemoglobin D Hemoglobin E Hemoglobin F (ELP) Hemoglobin G Hemoglobin S Hgb ELP Interp Sodium 141 Potassium 4.4 Chloride 111 H Carbon Dioxide 26 Anion Gap 8.4 BUN 37 H Creatinine 1.60 H GFR Calculation 51 BUN/Creatinine Ratio 23.00 H Glucose 100 Calculated Osmolality 289.3 Calcium 8.2 L Magnesium 2.4 Ferritin Total Creatine Kinase 73 CK-MB (CK-2) < 1.0 Troponin I < 0.015 B-Natriuretic Peptide Triglycerides Cholesterol LDL Cholesterol VLDL Cholesterol HDL Cholesterol Heart Disease Risk Ratio Vitamin B12 Folate Free T4 0.95 TSH 3rd Generation 8.130 H Blood Type Antibody Screen SUSSY (IgG-AHG) SUSSY, Polyspecific Crossmatch Blood Bank Comment 12/25/16 12/25/16 12/25/16 15:36 15:36 15:36 WBC 6.5 RBC 2.38 L Hgb 6.8 L Hct 21.6 L MCV 90.8 MCH 29 MCHC 31.5 L RDW 14.8 Plt Count 201 MPV 12.4 H Neut % (Auto) 49.3 Lymph % (Auto) 38.4 [place] % (Auto) 8.7 Eos % (Auto) 2.9 Baso % (Auto) 0.5 Neut # (Auto) 3.2 Lymph # (Auto) 2.5 [place] # (Auto) 0.6 Eos # (Auto) 0.2 Baso # (Auto) 0.0 Immature Gran % 0.2 Nucleated RBC % 0.0 Immature Gran # 0.01 Nucleated RBCs # 0.00 Anemia Panel Interp See comment Platelet Estimate Normal Immature Plt Fraction 0.0 Hypochromasia Slight Poikilocytosis 1+ Spherocytes Few Tear Drop Cells Few Ovalocytes Few ESR Westergren 28 H Absolute Retic 0.1 Percent Retic 2.2 H Retic Hgb Equivalent 22.1 L Hemoglobin A1 97.9 Hemoglobin A2 2.1 Hemoglobin C Not Reportable Hemoglobin D Not Reportable Hemoglobin E Not Reportable Hemoglobin F (ELP) Not Reportable Hemoglobin G Not Reportable Hemoglobin S Not Reportable Hgb ELP Interp See comment Sodium Potassium Chloride Carbon Dioxide Anion Gap BUN Creatinine GFR Calculation BUN/Creatinine Ratio Glucose Calculated Osmolality Calcium Magnesium Ferritin 6.2 L Total Creatine Kinase CK-MB (CK-2) Troponin I B-Natriuretic Peptide Triglycerides Cholesterol LDL Cholesterol VLDL Cholesterol HDL Cholesterol Heart Disease Risk Ratio Vitamin B12 286 Folate 15.8 Free T4 TSH 3rd Generation Blood Type Antibody Screen SUSSY (IgG-AHG) SUSSY, Polyspecific Crossmatch Blood Bank Comment 12/25/16 12/25/16 12/25/16 15:36 15:36 16:19 WBC RBC Hgb Hct MCV MCH MCHC RDW Plt Count MPV Neut % (Auto) Lymph % (Auto) [place] % (Auto) Eos % (Auto) Baso % (Auto) Neut # (Auto) Lymph # (Auto) [place] # (Auto) Eos # (Auto) Baso # (Auto) Immature Gran % Nucleated RBC % Immature Gran # Nucleated RBCs # Anemia Panel Interp Platelet Estimate Immature Plt Fraction Hypochromasia Poikilocytosis Spherocytes Tear Drop Cells Ovalocytes ESR [place] Absolute Retic Percent Retic Retic Hgb Equivalent Hemoglobin A1 Hemoglobin A2 Hemoglobin C Hemoglobin D Hemoglobin E Hemoglobin F (ELP) Hemoglobin G Hemoglobin S Hgb ELP Interp Sodium Potassium Chloride Carbon Dioxide Anion Gap BUN Creatinine GFR Calculation BUN/Creatinine Ratio Glucose Calculated Osmolality Calcium Magnesium Ferritin Total Creatine Kinase CK-MB (CK-2) Troponin I B-Natriuretic Peptide 138 H Triglycerides Cholesterol LDL Cholesterol VLDL Cholesterol HDL Cholesterol Heart Disease Risk Ratio Vitamin B12 Folate Free T4 TSH 3rd Generation Blood Type A POSITIVE Antibody Screen Negative SUSSY (IgG-AHG) Negative SUSSY, Polyspecific Negative Crossmatch See Detail Blood Bank Comment 12/25/16 12/26/16 12/26/16 23:47 02:35 02:35 WBC 5.7 RBC 2.72 L Hgb 7.8 L Hct 23.8 L MCV 87.5 MCH 29 MCHC 32.8 RDW 14.8 Plt Count 160 D MPV 12.1 H Neut % (Auto) 40.9 Lymph % (Auto) 43.4 [place] % (Auto) 10.1 Eos % (Auto) 4.9 Baso % (Auto) 0.5 Neut # (Auto) 2.3 Lymph # (Auto) 2.5 [place] # (Auto) 0.6 Eos # (Auto) 0.3 Baso # (Auto) 0.0 Immature Gran % 0.2 Nucleated RBC % 0.0 Immature Gran # 0.01 Nucleated RBCs # 0.00 Anemia Panel Interp Platelet Estimate Immature Plt Fraction 0.0 Hypochromasia Poikilocytosis Spherocytes Tear Drop Cells Ovalocytes ESR Westergren Absolute Retic Percent Retic Retic Hgb Equivalent Hemoglobin A1 Hemoglobin A2 Hemoglobin C Hemoglobin D Hemoglobin E Hemoglobin F (ELP) Hemoglobin G Hemoglobin S Hgb ELP Interp Sodium 142 Potassium 4.5 Chloride 110 H Carbon Dioxide 25 Anion Gap 11.5 BUN 30 H Creatinine 1.50 H GFR Calculation 55 BUN/Creatinine Ratio 20.00 Glucose 93 Calculated Osmolality 288.1 Calcium 7.7 L Magnesium 2.3 Ferritin Total Creatine Kinase 63 CK-MB (CK-2) 1.1 Troponin I < 0.015 B-Natriuretic Peptide Triglycerides 61 Cholesterol 142 LDL Cholesterol 75.0 VLDL Cholesterol 12.2 HDL Cholesterol 45 Heart Disease Risk Ratio 3.16 Vitamin B12 Folate Free T4 TSH 3rd Generation Blood Type Antibody Screen SUSSY (IgG-AHG) SUSSY, Polyspecific Crossmatch Blood Bank Comment 12/26/16 12/26/16 12/26/16 02:35 05:17 Unknown WBC RBC Hgb 7.8 L Hct 23.6 L MCV MCH MCHC RDW Plt Count MPV Neut % (Auto) Lymph % (Auto) [place] % (Auto) Eos % (Auto) Baso % (Auto) Neut # (Auto) Lymph # (Auto) [place] # (Auto) Eos # (Auto) Baso # (Auto) Immature Gran % Nucleated RBC % Immature Gran # Nucleated RBCs # Anemia Panel Interp Platelet Estimate Immature Plt Fraction Hypochromasia Poikilocytosis Spherocytes Tear Drop Cells Ovalocytes ESR Westergren Absolute Retic Percent Retic Retic Hgb Equivalent Hemoglobin A1 Hemoglobin A2 Hemoglobin C Hemoglobin D Hemoglobin E Hemoglobin F (ELP) Hemoglobin G Hemoglobin S Hgb ELP Interp Sodium Potassium Chloride Carbon Dioxide Anion Gap BUN Creatinine GFR Calculation BUN/Creatinine Ratio Glucose Calculated Osmolality Calcium Magnesium Ferritin Total Creatine Kinase 60 CK-MB (CK-2) 1.3 Troponin I < 0.015 B-Natriuretic Peptide Triglycerides Cholesterol LDL Cholesterol VLDL Cholesterol HDL Cholesterol Heart Disease Risk Ratio Vitamin B12 Folate Free T4 TSH 3rd Generation Blood Type Cancelled Antibody Screen Cancelled SUSSY (IgG-AHG) SUSSY, Polyspecific Crossmatch See Detail Blood Bank Comment Cancelled Quality Measures - VTE Contraindication to Pharmacological VTE Prophylaxis: High Risk of Bleeding
[2016-12-26] MEDS: ASPIRIN 325 MG TABLET PO SCH (11:37)
[2016-12-26] MEDS: METOPROLOL TARTRATE 25 MG TABLET PO SCH ×2 (11:38→20:25)
[2016-12-26] MEDS: LORazepam 1 MG TABLET PO SCH ×2 (11:38→20:25)
[2016-12-26] MEDS: AMIODARONE 200 MG TABLET PO SCH (12:02)
[2016-12-26] MEDS: PANTOPRAZOLE 40 MG TABLET PO SCH (12:02)
[2016-12-26] MEDS: GLUCOSAMINE 500 MG TABLET PO SCH (12:02)
[2016-12-26] MEDS: LISINOPRIL 10 MG TABLET PO SCH (12:03)
[2016-12-26] MEDS: COENZYME Q10 100 MG CAPSULE PO SCH (12:03)
[2016-12-26 20:16] LABS: Hematocrit 30.4 VOL% (42.0-52.0)
[2016-12-26] MEDS: TAMSULOSIN 0.4 MG CAPSULE PO SCH (20:25)
[2016-12-26] MEDS: ATORVASTATIN 10 MG TABLET PO SCH (20:25)
[2016-12-27 04:44] LABS: Basophils % 0.6 % (0.0-0.8); Eosinophils # 0.4 10*3/uL (0.0-0.87); Eosinophils % 5.2 % (0.00-10.9); Hematocrit 28.9 VOL% (42.0-52.0); Hemoglobin 9.6 GM/DL (14.0-18.0); Immature Granulocytes % 0.3 %; Immature Granulocytes Absolute 0.02 #; Lymphocytes # 2.5 10*3/uL (1.4-4.0); Lymphocytes % 35.9 % (21.2-54.2); Mean Corpuscular HGB Conc 33.2 GM/DL (32-36); Mean Corpuscular Hemoglobin 28 PG (27-34); Mean Corpuscular Volume 84.5 FL (87-102); Mean Platelet Volume 11.5 FL (9.6-12.0); Monocytes # 0.7 10*3/uL (0.11-0.8); Monocytes % 9.6 % (1.7-12.7); Neutrophils # 3.3 10*3/uL (1.4-7.4); Neutrophils % 48.4 % (38.7-73.9); Platelet Count 171 T/CUMM (130-400); Red Blood Count 3.42 MC/CUMM (3.8-5.5); Red Cell Distribution Width 15.2 % (9.3-17.3); White Blood Count 6.9 T/CUMM (4-12)
[2016-12-27 05:25] LABS: Calcium 8.4 MG/DL (8.5-10.1); Magnesium 2.4 MG/DL (1.8-2.4); Osmolality,Calculated 286.1 MOS/KG (273-304); Potassium 4.6 MMOL/L (3.5-5.1)
[2016-12-27] MEDS ORDERED: PROPOFOL 200 MG/20 ML VIAL IV ONE (10:50)
[2016-12-27] MEDS ORDERED: LIDOCAINE 1% 5 ML VIAL ONE (10:50)
--- NOTE | 2016-12-27 11:10 | Operative Note ---
Date of procedure: 12/27/16 Pre-op diagnosis: Rectal bleeding on anticoagulation Procedure: EGD 76-year-old gentleman on chronic anticoagulation who presented with acute rectal bleeding. He is now for upper endoscopy to further evaluate. Informed consent was obtained the patient He was sedated with MAC anesthesia per anesthesia protocol. Patient was placed in left lateral cutis position the Olympus flexible video upper endoscope was inserted into the oral cavity under direct vision the esophagus was intubated. Findings: Esophagus-normal proximal mid esophageal mucosa distal esophagus with moderate hiatal hernia. Esophageal stricture is present not dilated due to his anticoagulation. No significant esophagitis, varices or Riojas's was identified. Stomach-normal insufflation normal mucosa to direct and retroflexed views of the body, fundus, cardia and antrum the stomach. Pylorus-normal Duodenum-normal for the bulb and duodenum to the third portion of the duodenum. No AVMs or bloodstained mucosa was identified. The procedure was terminated and the patient tolerated the procedure well and discharged to recovery in good condition. Postop diagnosis: 1. Gastroesophageal reflux disease-continue PPI treatment and antireflux precautions 2. Esophageal stricture-dilatation as needed after anticoagulants have been held. 3. No clear source of GI bleed identified will plan colonoscopy on Friday after his Xarelto has been held for the required 5 days. In the interval continue to monitor H&H and transfuse as needed. Anesthesia: MAC Surgeon / Physician: Jaylen Grullon Estimated blood loss: none Specimens: none sent Condition: stable Disposition: post procedure unit Results - Labs CBC & BMP: 12/27/16 04:30 12/27/16 04:30 Discharge Plan - Discharge Medications No Action Tamsulosin [Flomax] 0.4 mg PO BEDTIME Glucosamine 1,500 mg PO DAILY Hydrocodone/Acetaminophen [Hydrocodon-Acetaminophn 10-325] 1 each PO Q6HR PRN PRN Reason: Pain Aspirin 325 mg PO DAILY LORazepam [Lorazepam] 1 - 2 mg PO BID Atorvastatin [Lipitor] 10 mg PO BEDTIME Amiodarone Tab [Cordarone Tab] 200 mg PO DAILY Lisinopril 10 mg PO DAILY Ubidecarenone [Co Q-10] 1 tablet PO DAILY Ginkgo Biloba 120 mg PO DAILY Metoprolol Tartrate Tab [Lopressor Tab] 12.5 mg PO BID - Follow Up or Referral - Forms/Instructions
--- NOTE | 2016-12-27 11:12 | Anesthesia Post-Op ---
Anesthesia Post OP - Post Ansesthetic Evaluation Patient seen in post op: Yes Resp: within normal limits CV: within normal limits Mental: within normal limits Temp: within normal limits [id number]: within normal limits Nausea and Vomiting: within normal limits Pain: within normal limits
--- NOTE | 2016-12-27 11:21 | Event Note ---
Patient gone to GI lab for EGD. Will round back later today.
[2016-12-27] MEDS ORDERED: BISACODYL 5 MG TABLET PO ONE (12:00)
[2016-12-27] MEDS: LORazepam 1 MG TABLET PO SCH (12:23)
[2016-12-27] MEDS: METOPROLOL TARTRATE 25 MG TABLET PO SCH (12:23)
[2016-12-27] MEDS: PANTOPRAZOLE 40 MG TABLET PO SCH (12:32)
[2016-12-27] MEDS: LISINOPRIL 10 MG TABLET PO SCH (12:32)
[2016-12-27] MEDS: GLUCOSAMINE 500 MG TABLET PO SCH (12:32)
[2016-12-27] MEDS: COENZYME Q10 100 MG CAPSULE PO SCH (12:33)
[2016-12-27] MEDS: AMIODARONE 200 MG TABLET PO SCH (12:33)
[2016-12-27] MEDS: ASPIRIN 325 MG TABLET PO SCH (12:33)
--- NOTE | 2016-12-27 13:30 | Cardiology Progress Note ---
Assessment and Plan (1) Anemia Status: Acute Assessment and plan: SEE PLAN OF CARE LISTED BELOW. Current Visit: Yes (2) Chronic anticoagulation Status: Chronic Assessment and plan: SEE PLAN OF CARE LISTED BELOW. Current Visit: Yes (3) Paroxysmal a-fib Status: Acute Current Visit: No (4) H/O heart valve replacement with bioprosthetic valve Problem details: Aortic valve Status: Chronic Assessment and plan: SEE PLAN OF CARE LISTED BELOW. Current Visit: No (5) CAD (coronary artery disease) Status: Chronic Assessment and plan: SEE PLAN OF CARE LISTED BELOW. Current Visit: No Qualifiers: Coronary Disease-Associated Artery/Lesion type: bypass graft [place] vs. transplanted heart: [place] heart Associated angina: without angina Qualified Code(s): I25.810 - Atherosclerosis of coronary artery bypass graft(s) without angina pectoris (6) Dyslipidemia Status: Chronic Assessment and plan: SEE PLAN OF CARE LISTED BELOW. Current Visit: No (7) Hypertension Status: Chronic Assessment and plan: SEE PLAN OF CARE LISTED BELOW. Current Visit: No (8) Dyspnea on exertion Status: Acute Assessment and plan: SEE PLAN OF CARE LISTED BELOW. Current Visit: Yes Cardiology - PN: Subj Interval history: Plisse Machine Operator: Dr. Refugio Graff SUMMARY Mr. Yee is a 76 year old male with known history of coronary artery disease , routinely followed by Dr. Refugio Graff. Patient has cardiac risk factors significant for known CAD, hypertension, dyslipidemia, obesity and former smoker (quit smoking in 1990). Patient has a past medical history of paroxysmal atrial fibrillation. He had heart catheterization performed January 2015. He was noted to have severe aortic stenosis as well as severe disease of the mid LAD and second diagonal. Subsequently, he underwent AVR and coronary artery bypass grafting. He had CABG 2 with FISCHER to LAD and SVG to diagonal coronary artery. He had bioprosthetic aortic valve placed as well. His last echocardiogram was performed October and 17. At that time he had normal systolic function with EF estimated at 55%. Grade 2 diastolic dysfunction. Mild concentric LVH. Mild MR. Mild to moderate TR. Pulmonary artery pressure 38 mmHg. Patient was newly diagnosed with paroxysmal atrial fibrillation per Holter monitor October 2016. Patient was transferred to [facility] from [facility] for further evaluation of anemia. [facility] 7 and 22. At our facility, H&H was 6 and 21. Patient received 2 units of packed red blood cells last night. Xarelto has been placed on hold. GI was consulted. DECEMBER 27, 2016 Patient was seen and examined on the telemetry unit. He is status post EGD this morning with Dr. Grullon. No courses of GI bleed was identified. Plan for C scope on Friday after his Xarelto has been held for a total of 5 days. H&H did drop from 10 and 30 to 9.6 and 28.9 this morning. He continues to have minimal blood in his stool per his report. No stools have been collected for occult blood. He is without points of chest pain, heaviness and tightness. Denies shortness of breath. He reports that he feels much better after receiving transfusion. He has had a total of 4 units this hospitalization. Patient has been normal sinus rhythm per quality assurance monitor final. No atrial fibrillation this hospitalization. We will keep patient over the weekend and monitor with daily CBCs, transfuse as needed. Plan for C scope on Friday. N.p.o. after midnight Friday night. I will further discuss with Dr. Mclean and await his additional recommendations ASSESSMENT AND PLAN 1. ANEMIA - H&H did drop from 10 and 30 to 9.6 and 28.9 this morning. He continues to have minimal blood in his stool per his report. No stools have been collected for occult blood. He is status post EGD this morning with Dr. Grullon. No courses of GI bleed was identified. Plan for C scope on Friday after his Xarelto has been held for a total of 5 days. We will keep patient over the weekend and monitor with daily CBCs, transfuse as needed. Plan for C scope on Friday. N.p.o. after midnight Friday night. I will further discuss with Dr. Mclean and await his additional recommendations 2. HISTORY OF CAD - This appears to be clinically stable at present. No signs of ACS. Patient is without complaints of angina. I will continue his aspirin, lipid-lowering agent and beta blockade. 3. HISTORY OF PAROXYSMAL ATRIAL FIBRILLATION - Newly diagnosed in October per Holter monitor. Appears to be clinically stable at present. Now in normal sinus rhythm. Will continue amiodarone and monitor per telemetry. Holding Xarelto at this time for GI evaluation. 4. CHRONIC ANTICOAGULATION - Was placed on Xarelto 3 weeks ago for stroke prevention as he has history of PAF. Will hold at this time pending GI evaluation. He did not have his EDGAR resected during the cardiac surgery, long- term anticoagulation for PAF is indicated. If this is too high risk, EDGAR closure may be considered. 5. HYPERLIPIDEMIA - Continue lipid-lowering agent. LDL 75. 6. HYPERTENSION - Blood pressure well controlled. Will monitor blood pressure and adjust medications accordingly this hospitalization. 7. STATUS POST AVR WITH BIOPROSTHETIC VALVE - Continue current plan of care. 8. DYSPNEA ON EXERTION - Likely secondary to his profound anemia. We will need to reassess JOSE, when hematocrit stable. Need to rule out pulmonary issues , related to amiodarone. Exam (Progress Note) - Constitutional Vitals: Period Temp Pulse Resp BP Sys/Mariano Pulse Ox Last 24 Hr 97.1 F-98.4 F 53-86 12-20 83-155/37-75 95-100 Exam: General: Appears well with no apparent distress. Pleasant and cooperative. Appears comfortable. HEENT: PERRL, normocephalic, atraumatic. Mucous membranes moist. No jaundice noted. Conjunctiva moist and clear, sclerae anicteric Neck: No JVD/HJR, no thyromegaly or lymphadenopathy noted. No carotid bruit appreciated Cardiac: Regular rate and rhythm. Grade 2 systolic murmur Lungs: Clear to auscultation without accessory muscle use to assist the respiratory pattern. Not requiring oxygen. Abdomen: Soft, bowel sounds normoactive. Nontender and nondistended. No abdominal bruit or thrill noted. No masses noted. Extremities: No clubbing, cyanosis noted. No edema noted. Upper extremity pulses 2+. Lower extremity pulses 2+. Capillary refill less than 3 seconds. Skin: No unusual lesions or rashes. No skin breakdown appreciated. Neuro: Awake, alert and oriented 3. Moves all extremities well without hemiparesis or paralysis. No essential tremor is appreciated. Result/EKG - Labs CBC & BMP: 12/27/16 04:30 12/27/16 04:30 Lab Results: I have reviewed the past 24 hour labs Labs: Laboratory Results - last 24 hr 12/26/16 12/26/16 12/27/16 19:57 Unknown 04:30 WBC 6.9 RBC 3.42 L D Hgb 10.0 L D 9.6 L Hct 30.4 L 28.9 L MCV 84.5 L MCH 28 MCHC 33.2 RDW 15.2 Plt Count 171 MPV 11.5 Neut % (Auto) 48.4 Lymph % (Auto) 35.9 [place] % (Auto) 9.6 Eos % (Auto) 5.2 Baso % (Auto) 0.6 Neut # (Auto) 3.3 Lymph # (Auto) 2.5 [place] # (Auto) 0.7 Eos # (Auto) 0.4 Baso # (Auto) 0.0 Immature Gran % 0.3 Nucleated RBC % 0.0 Immature Gran # 0.02 Nucleated RBCs # 0.00 Immature Plt Fraction 0.0 Sodium Potassium Chloride Carbon Dioxide Anion Gap BUN Creatinine GFR Calculation BUN/Creatinine Ratio Glucose Calculated Osmolality Calcium Magnesium Blood Type Cancelled Antibody Screen Cancelled Crossmatch See Detail Blood Bank Comment Cancelled 12/27/16 04:30 WBC RBC Hgb Hct MCV MCH MCHC RDW Plt Count MPV Neut % (Auto) Lymph % (Auto) [place] % (Auto) Eos % (Auto) Baso % (Auto) Neut # (Auto) Lymph # (Auto) [place] # (Auto) Eos # (Auto) Baso # (Auto) Immature Gran % Nucleated RBC % Immature Gran # Nucleated RBCs # Immature Plt Fraction Sodium 142 Potassium 4.6 Chloride 109 H Carbon Dioxide 26 Anion Gap 11.6 BUN 23 H Creatinine 1.50 H GFR Calculation 55 BUN/Creatinine Ratio 15.00 Glucose 100 Calculated Osmolality 286.1 Calcium 8.4 L Magnesium 2.4 Blood Type Antibody Screen Crossmatch Blood Bank Comment Quality Measures - VTE Contraindication to Pharmacological VTE Prophylaxis: High Risk of Bleeding
[2016-12-27 16:51] VITALS: BP 148/67
--- NOTE | 2016-12-27 16:53 | Discharge Summary ---
Hospital Course - Hospital Course Hospital Course: System Operation Superintendent: Dr. Refugio Graff Mr. Yee is a 76 year old male with known history of coronary artery disease , routinely followed by Dr. Refugio Graff. Patient has cardiac risk factors significant for known CAD, hypertension, dyslipidemia, obesity and former smoker (quit smoking in 1990). Patient has a past medical history of paroxysmal atrial fibrillation. He had heart catheterization performed January 2015. He was noted to have severe aortic stenosis as well as severe disease of the mid LAD and second diagonal. Subsequently, he underwent AVR and coronary artery bypass grafting. He had CABG 2 with FISCHER to LAD and SVG to diagonal coronary artery. He had bioprosthetic aortic valve placed as well. His last echocardiogram was performed October and . At that time he had normal systolic function with EF estimated at 55%. Grade 2 diastolic dysfunction. Mild concentric LVH. Mild MR. Mild to moderate TR. Pulmonary artery pressure 38 mmHg. Patient was newly diagnosed with paroxysmal atrial fibrillation per Holter monitor October 2016. He was subsequently placed on Xarelto for stroke prevention. Patient was transferred to [facility] from [facility] for further evaluation of anemia[facility] 7 and 22. At our facility, H&H was 6 and 21. Patient received a total of 4 units of packed red blood cells this hospitalization. Xarelto was placed on hold for pending GI evaluation. This will continue to be held at discharge per patient underwent EGD earlier this morning per Dr. Grullon. No causes of GI bleed was identified. Plan for C scope Friday after his Xarelto has been on hold for a total of 5 days. H&H is stable post transfusion. Patient is extremely anxious for discharge home. He reports that he is feeling back to his baseline. He denies shortness of breath as well as chest pain, heaviness and tightness. Patient is hemodynamically stable GI was contacted this afternoon. They are okay with patient being discharged home and return on Friday for outpatient C scope. Patient has been instructed to stay n.p.o. after midnight Friday night. He will be given a prescription for MiraLAX and Dulcolax at discharge. He has been instructed to take whether these medications Friday evening for scope prep. He verbalizes understanding. Having felt that patient has not maximal medical therapy, he will be discharged home in stable condition per Patient will be given a follow-up appointment with Dr. Graff in 2 weeks with CBC and EKG. Patient has been instructed to return to admissions Friday morning for outpatient C scope. He will stay n.p.o. after midnight Friday night. He will take both prescribed Dulcolax and MiraLAX Friday night for prep. He verbalized understanding. Patient verbalizes understanding of discharge instructions and discharge medications. - Time spent with patient Time with patient DS: Greater than 30 minutes Diagnosis - Discharge Diagnosis (1) Anemia Status: Acute (2) Chronic anticoagulation Status: Chronic (3) Paroxysmal a-fib Status: Chronic (4) H/O heart valve replacement with bioprosthetic valve Status: Chronic (5) CAD (coronary artery disease) Status: Chronic (6) Dyslipidemia Status: Chronic (7) Hypertension Status: Chronic (8) Dyspnea on exertion Status: Resolved Specialty Discharge - Follow Up or Referrals Follow up with: Refugio Graff MD [Physician] - 2 Weeks (CBC and EKG) Discharge Plan - Discharge Data Disposition: Disch To Home/Self Care Condition at Discharge: Stable Discharge Diet: heart healthy Activity: resume usual activities as tolerated Hygiene: no restrictions Weight Bearing at Discharge: weight bear as tolerated Driving: not until seen by doctor Contact your physician if you experience:: fever over 101, Difficulty voiding, Redness or swelling, Nausea/Vomiting, Shortness of breath, Bleeding, pain uncontrolled by pain medications - Discharge Medications New Pantoprazole Tab [Protonix Tab] 40 mg PO DAILY #30 tablet Polyethylene Glycol Powder [Miralax] 255 gm PO ONCE #15 pack Bisacodyl Tab [Dulcolax Tab] 20 mg PO ONCE #4 tablet Continue Tamsulosin [Flomax] 0.4 mg PO BEDTIME Glucosamine 1,500 mg PO DAILY Hydrocodone/Acetaminophen [Hydrocodon-Acetaminophn 10-325] 1 each PO Q6HR PRN PRN Reason: Pain Aspirin 325 mg PO DAILY LORazepam [Lorazepam] 1 - 2 mg PO BID Atorvastatin [Lipitor] 10 mg PO BEDTIME Amiodarone Tab [Cordarone Tab] 200 mg PO DAILY Lisinopril 10 mg PO DAILY Ubidecarenone [Co Q-10] 1 tablet PO DAILY Ginkgo Biloba 120 mg PO DAILY Metoprolol Tartrate Tab [Lopressor Tab] 12.5 mg PO BID - Follow Up or Referral - Forms/Instructions Additional Discharge Instructions: N.p.o. after midnight Friday. Take both prescribed MiraLAX and Dulcolax Friday for preparation of C scope Friday. Return back to [facility] Friday for scheduled C scope. Exam - Constitutional Vitals: Period Temp Pulse Resp BP Sys/Mariano Pulse Ox Last 24 Hr 97.1 F-98.8 F 53-86 12-20 83-155/37-74 95-100 Exam: General: Appears well with no apparent distress. Pleasant and cooperative. Appears comfortable. HEENT: PERRL, normocephalic, atraumatic. Mucous membranes moist. No jaundice noted. Conjunctiva moist and clear, sclerae anicteric Neck: No JVD/HJR, no thyromegaly or lymphadenopathy noted. No carotid bruit appreciated Cardiac: Regular rate and rhythm. Grade 2 systolic murmur Lungs: Clear to auscultation without accessory muscle use to assist the respiratory pattern. Not requiring oxygen. Abdomen: Soft, bowel sounds normoactive. Nontender and nondistended. No abdominal bruit or thrill noted. No masses noted. Extremities: No clubbing, cyanosis noted. No edema noted. Upper extremity pulses 2+. Lower extremity pulses 2+. Capillary refill less than 3 seconds. Skin: No unusual lesions or rashes. No skin breakdown appreciated. Neuro: Awake, alert and oriented 3. Moves all extremities well without hemiparesis or paralysis. No essential tremor is appreciated. Discharge Results Procedures and tests throughout hospitalization: Pending Orders 12/25/16 15:51 Occult Blood, Stool Routine 12/28/16 04:00 BMP w/ Mg [Basic Metabolic Panel w/Mg] IN AM CBC [Comp Blood Count Auto Diff] IN AM 12/29/16 04:00 BMP w/ Mg [Basic Metabolic Panel w/Mg] IN AM CBC [Comp Blood Count Auto Diff] IN AM 12/30/16 04:00 BMP w/ Mg [Basic Metabolic Panel w/Mg] IN AM CBC [Comp Blood Count Auto Diff] IN AM Labs on day of discharge: Labs from last 24 hours 12/27/16 12/27/16 12/26/16 04:30 04:30 Unknown WBC 6.9 RBC 3.42 L D Hgb 9.6 L Hct 28.9 L MCV 84.5 L MCH 28 MCHC 33.2 RDW 15.2 Plt Count 171 MPV 11.5 Neut % (Auto) 48.4 Lymph % (Auto) 35.9 Callaway % (Auto) 9.6 Eos % (Auto) 5.2 Baso % (Auto) 0.6 Neut # (Auto) 3.3 Lymph # (Auto) 2.5 Callaway # (Auto) 0.7 Eos # (Auto) 0.4 Baso # (Auto) 0.0 Immature Gran % 0.3 Nucleated RBC % 0.0 Immature Gran # 0.02 Nucleated RBCs # 0.00 Immature Plt Fraction 0.0 Sodium 142 Potassium 4.6 Chloride 109 H Carbon Dioxide 26 Anion Gap 11.6 BUN 23 H Creatinine 1.50 H GFR Calculation 55 BUN/Creatinine Ratio 15.00 Glucose 100 Calculated Osmolality 286.1 Calcium 8.4 L Magnesium 2.4 Crossmatch See Detail 12/26/16 19:57 WBC RBC Hgb 10.0 L D Hct 30.4 L MCV MCH MCHC RDW Plt Count MPV Neut % (Auto) Lymph % (Auto) Call[place] % (Auto) Eos % (Auto) Baso % (Auto) Neut # (Auto) Lymph # (Auto) Callaway # (Auto) Eos # (Auto) Baso # (Auto) Immature Gran % Nucleated RBC % Immature Gran # Nucleated RBCs # Immature Plt Fraction Sodium Potassium Chloride Carbon Dioxide Anion Gap BUN Creatinine GFR Calculation BUN/Creatinine Ratio Glucose Calculated Osmolality Calcium Magnesium Crossmatch DS: Provider Date of admission: 12/26/16 09:27 Primary care physician: Shu Talamantes Attending physician on admission: Kervin Mclean MD Consults: 12/25/16 15:55 Consult to Physician [CONS] Routine Comment: Anemia, melena Consulting Provider: Jaylen Grullon When should Consulting Provider be notified: In am Discharging clinician: Leny Rg NP Expected date of discharge: 12/27/16
[2016-12-27] MEDS ORDERED: POLYETHYLENE GLYCOL POWDER 255 GM BOTTLE PO ONE (18:00)
[2016-12-29] MEDS ORDERED: BISACODYL 5 MG TABLET PO ONE (12:00)
[2016-12-29] MEDS ORDERED: POLYETHYLENE GLYCOL POWDER 255 GM BOTTLE PO ONE (18:00)
--- NOTE | 2016-12-31 09:24 | Physician Query Form ---
CLICK EDIT DOCUMENT TO SELECT QUERY ANSWER --> OK --> SIGN Jacki Farooq RN Clinical Booky W) [phone] (f) [phone] [email or web address]: Make your selection(s) from the choices in EACH section by typing an "x" and enter comments in the comment section. Please use your independent medical judgment in providing your response. This request does not imply that any particular answer is desired or expected. CLINICAL INDICATORS: (Providers should not edit this section) Based on documentation of "Acute rectal bleeding" "Acute anemia" "Patient is on anticoagulant therapy with Xarelto." HH of 6 and 21. "Getting the fourth unit of blood" Based on the above, could you clarify the appropriate diagnosis, if significant , that supports the above abnormalities and additional evaluation, monitoring, and/or treatment rendered: ( ) Bleeding due to Extrinsic Circulating Anticoagulants ( ) Bleeding NOT due to Extrinsic Circulating Anticoagulants ( ) Other, please specify: (x) Clinically unable to determine COMMENTS: PLEASE ALSO DOCUMENT RESPONSE IN PROGRESS NOTES AND/OR DISCHARGE SUMMARY Use of terms such as suspected, likely, or probable (associated with a specific diagnosis that is being evaluated, monitored, or treated as if it exists) are acceptable and can be restated in the discharge summary if not ruled out. MTDD
== END 2016-12-27 18:33 | disposition home or self-care (01) | DRG 378 ==
LOC: N.TELES
PROVIDERS: ADMIT Internal Medicine Clinical Cardiac Electrophysiology; ATTEND Internal Medicine Clinical Cardiac Electrophysiology